=== PATIENT | male | born 1985 | race Hispanic/Latino ===

== ENCOUNTER 2021-12-07 02:32 | Inpatient (IN) | payer OTHER ==
[2021-12-07] MEDS ORDERED: Acetaminophen 325 MG TAB PO PRN (03:06)
[2021-12-07] MEDS ORDERED: Guaifenesin DM 100-10/5 ML UDCUP PO PRN (03:06)
[2021-12-07] MEDS ORDERED: Calcium Carbonate 500 MG ChewTAB PO PRN (03:06)
[2021-12-07 03:16] VITALS: BMI 20.9
[2021-12-07] MEDS: Lactated Ringer's 1,000 ML IV SCH ×2 (03:51→18:14)
[2021-12-07] MEDS: HYDROcodone/Acetaminophen 5/325 mg Tablet PO PRN ×4 (03:51→18:15)
[2021-12-07 04:40] LABS: Hemoglobin 7.1 g/dL (13.5-17.5); Mean Corpuscular Hemoglobin 27.1 pg (27.0-33.0); Mean Corpuscular Volume 87.4 fl (81.2-95.1); Mean Platelet Volume 8.1 fl (7.4-10.4); Platelet Count 656 10x3/uL (150-450); RBC Distribution Width 15.6 % (11.5-14.5); Red Blood Cell (RBC) Count 2.62 10x6/uL (4.32-5.72); White Blood Cell (WBC) Count 11.3 10x3/uL (3.5-10.5)
[2021-12-07 04:49] LABS: Anion Gap 14 mmol/L (10-20); BUN (Urea Nitrogen) 11 mg/dL (8.9-20.6); CRP (Inflammatory) 12.45 mg/dL (= or < 0.5); Calc. Creatinine Clearance 106 mL/min (70-130); Calcium 8.2 mg/dL (7.8-10.44); Carbon Dioxide 21 mmol/L (22-29); Chloride 102 mmol/L (98-107); Glucose 110 mg/dL (70-105); Potassium 4.4 mmol/L (3.5-5.1); Sodium 133 mmol/L (136-145)
[2021-12-07 05:10] LABS: MDiff Complete? YES
[2021-12-07 05:14] LABS: Band 61 % (5-11); Lymphocytes 5 % (21-51); Metamyelocyte 1 % (0-0); Monocytes 6 % (0-10); Myelocyte 1 % (0-0); Neutrophil 26 % (42-75); Nucleated RBC 1 % (0)
[2021-12-07 05:16] LABS: Platelet Morphology Comment Appears Increased; Polychromasia SLIGHT = 2-3 cells (100X) (0-2/hpf); Reflex for Review?? YES
[2021-12-07] MEDS: DULoxetine 30 MG CAP PO SCH (08:37)
[2021-12-07] MEDS: Mesalamine DR 400 mg Capsule PO SCH ×2 (08:38→20:58)
[2021-12-07] MEDS: Ferrous Sulfate 325 MG TAB PO SCH (08:40)
[2021-12-07] MEDS: Ondansetron PF 4 MG/2 ML Vial IVP PRN ×3 (08:40→18:16)
[2021-12-07] MEDS: Famotidine 20 MG TAB PO SCH ×2 (08:40→20:58)
[2021-12-07] MEDS ORDERED: azaTHIOprine 50 MG TAB PO SCH (09:00)
[2021-12-07] MEDS ORDERED: methylPREDNISolone Sod Succ/PF 125 MG/2 ML VIAL IVP SCH (09:00)
[2021-12-07] MEDS: Morphine 4 MG/ML VIAL SLOW IVP PRN ×3 (12:03→20:52)
[2021-12-07 12:07] LABS: Hemoglobin 7.1 g/dL (13.5-17.5); Mean Corpuscular HGB CONC 30.2 g/dL (32.0-36.0); Mean Corpuscular Hemoglobin 26.9 pg (27.0-33.0); Mean Platelet Volume 8.2 fl (7.4-10.4); Platelet Count 719 10x3/uL (150-450); RBC Distribution Width 15.4 % (11.5-14.5); Red Blood Cell (RBC) Count 2.64 10x6/uL (4.32-5.72); White Blood Cell (WBC) Count 15.9 10x3/uL (3.5-10.5)
[2021-12-07 12:50] LABS: MDiff Complete? YES
[2021-12-07 12:52] LABS: Band 1 % (5-11); Lymphocytes 4 % (21-51); Monocytes 4 % (0-10); Neutrophil 91 % (42-75); Nucleated RBC 1 % (0)
[2021-12-07 12:56] LABS: Hypochromia SLIGHT = 6-15 cells (100X) (0-5/hpf); Platelet Morphology Comment Appears Increased; Polychromasia SLIGHT = 2-3 cells (100X) (0-2/hpf)
[2021-12-07 19:07] LABS: Hemoglobin 8.2 g/dL (13.5-17.5); Mean Corpuscular HGB CONC 32.2 g/dL (32.0-36.0); Mean Corpuscular Hemoglobin 28.7 pg (27.0-33.0); Mean Corpuscular Volume 89.2 fl (81.2-95.1); Mean Platelet Volume 7.9 fl (7.4-10.4); Platelet Count 587 10x3/uL (150-450); Red Blood Cell (RBC) Count 2.86 10x6/uL (4.32-5.72); White Blood Cell (WBC) Count 18.8 10x3/uL (3.5-10.5)
[2021-12-07 19:26] LABS: MDiff Complete? YES
[2021-12-07 19:27] LABS: Band 24 % (5-11); Lymphocytes 4 % (21-51); Metamyelocyte 1 % (0-0); Monocytes 5 % (0-10); Neutrophil 66 % (42-75); Nucleated RBC 2 % (0)
[2021-12-07 19:28] LABS: Anisocytosis SLIGHT = 6-15 cells (100X) (0-5/hpf); Hypochromia SLIGHT = 6-15 cells (100X) (0-5/hpf); Platelet Morphology Comment Appears Adequate; Polychromasia SLIGHT = 2-3 cells (100X) (0-2/hpf)
[2021-12-07 20:35] LABS: Toxic Granulation SLIGHT
[2021-12-07] MEDS: Aripiprazole 10 MG TAB PO SCH (20:58)
[2021-12-07] MEDS: methylPREDNISolone Sod Succ 40 MG VIAL IVP SCH (22:14)
[2021-12-08] MEDS: HYDROcodone/Acetaminophen 5/325 mg Tablet PO PRN ×4 (03:47→22:07)
[2021-12-08] MEDS: Ondansetron PF 4 MG/2 ML Vial IVP PRN ×2 (03:47→12:12)
[2021-12-08] MEDS: methylPREDNISolone Sod Succ 40 MG VIAL IVP SCH ×3 (06:18→22:05)
[2021-12-08 08:55] LABS: Hemoglobin 8.3 g/dL (13.5-17.5); MDiff Complete? YES; Mean Corpuscular HGB CONC 32.5 g/dL (32.0-36.0); Mean Corpuscular Hemoglobin 28.5 pg (27.0-33.0); Mean Corpuscular Volume 87.6 fl (81.2-95.1); Mean Platelet Volume 8.2 fl (7.4-10.4); Platelet Count 604 10x3/uL (150-450); RBC Distribution Width 15.5 % (11.5-14.5); Red Blood Cell (RBC) Count 2.91 10x6/uL (4.32-5.72); White Blood Cell (WBC) Count 20.4 10x3/uL (3.5-10.5)
[2021-12-08 09:19] LABS: Anion Gap 14 mmol/L (10-20); BUN (Urea Nitrogen) 13 mg/dL (8.9-20.6); CRP (Inflammatory) 8.97 mg/dL (= or < 0.5); Calc. Creatinine Clearance 117 mL/min (70-130); Calcium 8.4 mg/dL (7.8-10.44); Carbon Dioxide 24 mmol/L (22-29); Chloride 101 mmol/L (98-107); Glucose 133 mg/dL (70-105); Potassium 4.7 mmol/L (3.5-5.1); Sodium 134 mmol/L (136-145)
[2021-12-08] MEDS: DULoxetine 30 MG CAP PO SCH (09:42)
[2021-12-08] MEDS: Morphine 4 MG/ML VIAL SLOW IVP PRN ×3 (09:42→19:52)
[2021-12-08] MEDS: Famotidine 20 MG TAB PO SCH ×2 (09:42→19:59)
[2021-12-08] MEDS: Ferrous Sulfate 325 MG TAB PO SCH (09:42)
[2021-12-08 09:44] LABS: Band 35 % (5-11); Lymphocytes 7 % (21-51); Monocytes 5 % (0-10); Neutrophil 53 % (42-75); Nucleated RBC 1 % (0)
[2021-12-08 09:45] LABS: Platelet Morphology Comment Appears Increased
[2021-12-08 09:49] LABS: Hypochromia SLIGHT = 6-15 cells (100X) (0-5/hpf); Polychromasia SLIGHT = 2-3 cells (100X) (0-2/hpf)
[2021-12-08] MEDS: Mesalamine DR 400 mg Capsule PO SCH ×2 (09:58→19:59)
[2021-12-08] MEDS: Aripiprazole 10 MG TAB PO SCH (19:59)
[2021-12-09 04:40] LABS: Hemoglobin 8.1 g/dL (13.5-17.5); Mean Corpuscular HGB CONC 31.8 g/dL (32.0-36.0); Mean Corpuscular Hemoglobin 27.8 pg (27.0-33.0); Mean Corpuscular Volume 87.6 fl (81.2-95.1); Mean Platelet Volume 8.3 fl (7.4-10.4); Platelet Count 614 10x3/uL (150-450); Red Blood Cell (RBC) Count 2.91 10x6/uL (4.32-5.72); White Blood Cell (WBC) Count 18.3 10x3/uL (3.5-10.5)
[2021-12-09 04:51] LABS: Anion Gap 16 mmol/L (10-20); BUN (Urea Nitrogen) 15 mg/dL (8.9-20.6); CRP (Inflammatory) 7.81 mg/dL (= or < 0.5); Calc. Creatinine Clearance 114 mL/min (70-130); Calcium 8.5 mg/dL (7.8-10.44); Carbon Dioxide 26 mmol/L (22-29); Chloride 97 mmol/L (98-107); Glucose 124 mg/dL (70-105); Potassium 4.8 mmol/L (3.5-5.1); Sodium 134 mmol/L (136-145)
[2021-12-09] MEDS: methylPREDNISolone Sod Succ 40 MG VIAL IVP SCH ×3 (05:31→21:02)
[2021-12-09] MEDS: HYDROcodone/Acetaminophen 5/325 mg Tablet PO PRN (05:32)
[2021-12-09 05:46] LABS: MDiff Complete? YES
[2021-12-09 05:50] LABS: Band 56 % (5-11); Lymphocytes 5 % (21-51); Monocytes 5 % (0-10); Myelocyte 2 % (0-0); Neutrophil 32 % (42-75); Nucleated RBC 2 % (0)
[2021-12-09] MEDS: Ondansetron PF 4 MG/2 ML Vial IVP PRN (05:50)
[2021-12-09 05:53] LABS: Platelet Morphology Comment Appears Increased; Polychromasia SLIGHT = 2-3 cells (100X) (0-2/hpf)
[2021-12-09] MEDS: DULoxetine 30 MG CAP PO SCH (07:31)
[2021-12-09] MEDS: Ferrous Sulfate 325 MG TAB PO SCH (07:31)
[2021-12-09] MEDS: Mesalamine DR 400 mg Capsule PO SCH ×3 (07:32→20:58)
[2021-12-09] MEDS: Famotidine 20 MG TAB PO SCH (07:32)
[2021-12-09] MEDS ORDERED: Dicyclomine 10 MG CAP PO PRN (09:13)
[2021-12-09] MEDS ORDERED: Sodium Chloride 0.9% 1,000 ML IV SCH (09:15)
[2021-12-09] MEDS: Morphine 4 MG/ML VIAL SLOW IVP PRN ×3 (09:48→18:40)
[2021-12-09] MEDS ORDERED: Iron, Sodium Ferric Gluconate 250 MG, Admixture Fee 1 EACH in Sodium Chloride 0.9% 250 ... IVPB SCH (10:00)
[2021-12-09 14:21] LABS: ALT (SGPT) 10 U/L (8-55); AST (SGOT) 12 U/L (5-34); Albumin 2.6 g/dL (3.5-5.0); Alkaline Phosphatase 61 U/L (40-110); Bilirubin, Direct 0.1 mg/dL (0.1-0.3); Bilirubin, Total 0.2 mg/dL (0.2-1.2); Lipase 871 U/L (8-78); Protein, Total 6.3 g/dL (6.0-8.3)
[2021-12-09] MEDS: Sodium Chloride 0.9% 1,000 ML IV SCH ×2 (18:41→21:02)
[2021-12-09] MEDS: Aripiprazole 10 MG TAB PO SCH (21:01)
[2021-12-09 21:57] LABS: Bilirubin Neg (Negative); Blood, Urine Negative (Negative); Clarity Clear (Clear); Glucose, Urine (Dipstick) Normal (Negative); Ketone, Urine 5 mg/dL (Negative); Leukocyte Negative (Negative); Nitrite Negative (Negative); Protein, Urine (Dipstick) Negative (Neg-Trace); Urobilinogen Normal mg/dL (Less than 2)
[2021-12-09 22:01] LABS: Urine Culture Reflex No No
[2021-12-09 22:05] LABS: RBC/HPF None Seen HPF (0-3); Squamous Epithelial 0-3 HPF (0-3); WBC/HPF 0-3 HPF (0-3)
[2021-12-09 22:06] LABS: Bacteria/HPF Rare-Few HPF (None Seen)
[2021-12-10] MEDS: Morphine 4 MG/ML VIAL SLOW IVP PRN ×5 (00:57→18:28)
[2021-12-10] MEDS: Ondansetron PF 4 MG/2 ML Vial IVP PRN (01:01)
[2021-12-10] MEDS: Sodium Chloride 0.9% 1,000 ML IV SCH ×7 (01:04→22:40)
[2021-12-10] MEDS: methylPREDNISolone Sod Succ 40 MG VIAL IVP SCH ×3 (05:10→22:15)
[2021-12-10 05:13] LABS: ALT (SGPT) 8 U/L (8-55); AST (SGOT) 10 U/L (5-34); Albumin 2.5 g/dL (3.5-5.0); Alkaline Phosphatase 54 U/L (40-110); Anion Gap 10 mmol/L (10-20); BUN (Urea Nitrogen) 9 mg/dL (8.9-20.6); Bilirubin, Total 0.2 mg/dL (0.2-1.2); Calc. Creatinine Clearance 129 mL/min (70-130); Calcium 8.1 mg/dL (7.8-10.44); Carbon Dioxide 28 mmol/L (22-29); Chloride 99 mmol/L (98-107); Globulin 3.6 g/dL (2.4-3.5); Glucose 108 mg/dL (70-105); Hemoglobin 7.7 g/dL (13.5-17.5); Lipase 415 U/L (8-78); Mean Corpuscular HGB CONC 31.3 g/dL (32.0-36.0); Mean Corpuscular Hemoglobin 27.8 pg (27.0-33.0); Mean Corpuscular Volume 88.8 fl (81.2-95.1); Mean Platelet Volume 8.2 fl (7.4-10.4); Phosphorus 3.4 mg/dL (2.3-4.7); Platelet Count 478 10x3/uL (150-450); Potassium 4.2 mmol/L (3.5-5.1); Protein, Total 6.1 g/dL (6.0-8.3); RBC Distribution Width 16.6 % (11.5-14.5); Red Blood Cell (RBC) Count 2.77 10x6/uL (4.32-5.72); Sodium 133 mmol/L (136-145); Uric Acid 3.3 mg/dL (3.5-7.2); White Blood Cell (WBC) Count 14.2 10x3/uL (3.5-10.5)
[2021-12-10 05:38] LABS: CRP (Inflammatory) 7.05 mg/dL (= or < 0.5); Cardiac Risk 3.9 (Less than 4.5); Cholesterol 129 mg/dl (< 200 Desired); HDL Cholesterol 33 mg/dL (>60 Neg Risk); LDL Cholesterol, Calculated 72 mg/dL; Magnesium 2.1 mg/dL (1.6-2.6); Triglycerides 121 mg/dL (Less than 150)
[2021-12-10 06:21] LABS: MDiff Complete? YES
[2021-12-10 06:24] LABS: Band 19 % (5-11); Lymphocytes 5 % (21-51); Monocytes 7 % (0-10); Neutrophil 69 % (42-75); Nucleated RBC 5 % (0)
[2021-12-10 06:26] LABS: Platelet Morphology Comment Appears Increased
[2021-12-10 06:28] LABS: Anisocytosis SLIGHT = 6-15 cells (100X) (0-5/hpf); Hypochromia MODERATE=16-30 cells (100X) (0-5/hpf); Polychromasia SLIGHT = 2-3 cells (100X) (0-2/hpf)
[2021-12-10] MEDS: Pantoprazole 40 MG VIAL IVP SCH (09:17)
[2021-12-10] MEDS: DULoxetine 30 MG CAP PO SCH (09:18)
[2021-12-10] MEDS: LACTINEX 1 TAB PO SCH (09:18)
[2021-12-10 12:03] LABS: Hemoglobin A1c 5.4 % (4.0-6.0)
[2021-12-10] MEDS: HYDROcodone/Acetaminophen 5/325 mg Tablet PO PRN ×2 (15:57→22:14)
[2021-12-10] MEDS: Aripiprazole 10 MG TAB PO SCH ×2 (22:15→22:25)
[2021-12-11] MEDS: HYDROcodone/Acetaminophen 5/325 mg Tablet PO PRN ×3 (02:45→12:57)
[2021-12-11 05:05] LABS: ALT (SGPT) 7 U/L (8-55); AST (SGOT) 9 U/L (5-34); Albumin 2.4 g/dL (3.5-5.0); Alkaline Phosphatase 50 U/L (40-110); Anion Gap 11 mmol/L (10-20); BUN (Urea Nitrogen) 8 mg/dL (8.9-20.6); Bilirubin, Total 0.2 mg/dL (0.2-1.2); Calc. Creatinine Clearance 133 mL/min (70-130); Calcium 8.1 mg/dL (7.8-10.44); Carbon Dioxide 27 mmol/L (22-29); Chloride 99 mmol/L (98-107); Globulin 3.2 g/dL (2.4-3.5); Glucose 119 mg/dL (70-105); Lipase 142 U/L (8-78); Phosphorus 3.1 mg/dL (2.3-4.7); Protein, Total 5.6 g/dL (6.0-8.3); Sodium 133 mmol/L (136-145)
[2021-12-11 05:06] LABS: Hemoglobin 7.3 g/dL (13.5-17.5); Mean Corpuscular HGB CONC 30.7 g/dL (32.0-36.0); Mean Corpuscular Hemoglobin 27.9 pg (27.0-33.0); Mean Corpuscular Volume 90.8 fl (81.2-95.1); Mean Platelet Volume 8.3 fl (7.4-10.4); Platelet Count 432 10x3/uL (150-450); RBC Distribution Width 16.7 % (11.5-14.5); Red Blood Cell (RBC) Count 2.62 10x6/uL (4.32-5.72); White Blood Cell (WBC) Count 11.4 10x3/uL (3.5-10.5)
[2021-12-11 05:13] LABS: MDiff Complete? YES
[2021-12-11 05:14] LABS: Platelet Morphology Comment Appears Adequate; RBC Morphology Normal
[2021-12-11 05:18] LABS: Band 15 % (5-11); Lymphocytes 6 % (21-51); Monocytes 5 % (0-10); Neutrophil 73 % (42-75); Nucleated RBC 5 % (0); Reactive Lymphocytes 1 % (0-10)
[2021-12-11] MEDS: methylPREDNISolone Sod Succ 40 MG VIAL IVP SCH ×3 (06:06→21:47)
[2021-12-11] MEDS: Sodium Chloride 0.9% 1,000 ML IV SCH ×2 (06:17→12:56)
[2021-12-11] MEDS: LACTINEX 1 TAB PO SCH (09:10)
[2021-12-11] MEDS: Pantoprazole 40 MG VIAL IVP SCH (09:10)
[2021-12-11] MEDS: DULoxetine 30 MG CAP PO SCH (09:10)
[2021-12-11] MEDS: Morphine 4 MG/ML VIAL SLOW IVP PRN ×3 (09:24→21:55)
[2021-12-11] MEDS: Ondansetron PF 4 MG/2 ML Vial IVP PRN (17:51)
[2021-12-11] MEDS: Aripiprazole 10 MG TAB PO SCH (21:47)
[2021-12-12] MEDS: Morphine 4 MG/ML VIAL SLOW IVP PRN ×6 (01:29→22:59)
[2021-12-12] MEDS: Sodium Chloride 0.9% 1,000 ML IV SCH ×2 (01:34→14:05)
[2021-12-12 04:09] LABS: Hemoglobin 7.8 g/dL (13.5-17.5); Mean Corpuscular HGB CONC 31.6 g/dL (32.0-36.0); Mean Corpuscular Hemoglobin 28.1 pg (27.0-33.0); Mean Corpuscular Volume 88.8 fl (81.2-95.1); Mean Platelet Volume 8.3 fl (7.4-10.4); Platelet Count 399 10x3/uL (150-450); RBC Distribution Width 16.9 % (11.5-14.5); Red Blood Cell (RBC) Count 2.78 10x6/uL (4.32-5.72); White Blood Cell (WBC) Count 10.9 10x3/uL (3.5-10.5)
[2021-12-12 04:24] LABS: ALT (SGPT) 8 U/L (8-55); AST (SGOT) 8 U/L (5-34); Albumin 2.5 g/dL (3.5-5.0); Alkaline Phosphatase 56 U/L (40-110); Anion Gap 11 mmol/L (10-20); BUN (Urea Nitrogen) 8 mg/dL (8.9-20.6); Bilirubin, Total 0.2 mg/dL (0.2-1.2); Calc. Creatinine Clearance 129 mL/min (70-130); Calcium 8.1 mg/dL (7.8-10.44); Carbon Dioxide 27 mmol/L (22-29); Chloride 97 mmol/L (98-107); Globulin 3.2 g/dL (2.4-3.5); Glucose 133 mg/dL (70-105); Lipase 131 U/L (8-78); Magnesium 1.9 mg/dL (1.6-2.6); Phosphorus 2.6 mg/dL (2.3-4.7); Potassium 3.9 mmol/L (3.5-5.1); Protein, Total 5.7 g/dL (6.0-8.3); Sodium 131 mmol/L (136-145)
[2021-12-12] MEDS: Ondansetron PF 4 MG/2 ML Vial IVP PRN (05:05)
[2021-12-12] MEDS: methylPREDNISolone Sod Succ 40 MG VIAL IVP SCH ×3 (05:13→21:51)
[2021-12-12 06:08] LABS: MDiff Complete? YES
[2021-12-12 06:12] LABS: Band 17 % (5-11); Lymphocytes 5 % (21-51); Metamyelocyte 2 % (0-0); Monocytes 4 % (0-10); Neutrophil 68 % (42-75); Nucleated RBC 1 % (0); Reactive Lymphocytes 2 % (0-10)
[2021-12-12 06:15] LABS: Hypochromia SLIGHT = 6-15 cells (100X) (0-5/hpf); Platelet Morphology Comment Appears Adequate; Polychromasia SLIGHT = 2-3 cells (100X) (0-2/hpf)
[2021-12-12] MEDS: Pantoprazole 40 MG VIAL IVP SCH (10:33)
[2021-12-12] MEDS: DULoxetine 30 MG CAP PO SCH (10:33)
[2021-12-12] MEDS: LACTINEX 1 TAB PO SCH (10:33)
[2021-12-12] MEDS: Iron, Sodium Ferric Gluconate 125 MG in Sodium Chloride 0.9% 100 ML IVPB SCH (11:19)
[2021-12-12 11:38] LABS: CMV DNA-PCR Test Negative (Negative)
[2021-12-12] MEDS: Aripiprazole 10 MG TAB PO SCH (21:28)
[2021-12-13 04:20] LABS: Hemoglobin 8.8 g/dL (13.5-17.5); Mean Corpuscular HGB CONC 31.3 g/dL (32.0-36.0); Mean Corpuscular Hemoglobin 27.8 pg (27.0-33.0); Mean Corpuscular Volume 88.9 fl (81.2-95.1); Mean Platelet Volume 8.4 fl (7.4-10.4); Platelet Count 336 10x3/uL (150-450); RBC Distribution Width 17.4 % (11.5-14.5); Red Blood Cell (RBC) Count 3.16 10x6/uL (4.32-5.72); White Blood Cell (WBC) Count 12.8 10x3/uL (3.5-10.5)
[2021-12-13] MEDS: Morphine 4 MG/ML VIAL SLOW IVP PRN ×5 (04:26→22:04)
[2021-12-13] MEDS: Sodium Chloride 0.9% 1,000 ML IV SCH ×2 (04:34→18:19)
[2021-12-13 04:35] LABS: ALT (SGPT) 24 U/L (8-55); AST (SGOT) 16 U/L (5-34); Albumin 2.7 g/dL (3.5-5.0); Alkaline Phosphatase 67 U/L (40-110); Anion Gap 12 mmol/L (10-20); BUN (Urea Nitrogen) 10 mg/dL (8.9-20.6); Bilirubin, Total 0.2 mg/dL (0.2-1.2); Calc. Creatinine Clearance 123 mL/min (70-130); Calcium 8.2 mg/dL (7.8-10.44); Carbon Dioxide 27 mmol/L (22-29); Chloride 97 mmol/L (98-107); Globulin 3.4 g/dL (2.4-3.5); Glucose 120 mg/dL (70-105); Lipase 167 U/L (8-78); Magnesium 1.9 mg/dL (1.6-2.6); Phosphorus 2.1 mg/dL (2.3-4.7); Protein, Total 6.1 g/dL (6.0-8.3); Sodium 132 mmol/L (136-145)
[2021-12-13 05:18] LABS: MDiff Complete? YES
[2021-12-13 05:22] LABS: Band 14 % (5-11); Lymphocytes 3 % (21-51); Metamyelocyte 5 % (0-0); Monocytes 8 % (0-10); Neutrophil 68 % (42-75); Reactive Lymphocytes 2 % (0-10)
[2021-12-13 05:23] LABS: Hypochromia SLIGHT = 6-15 cells (100X) (0-5/hpf); Platelet Morphology Comment Appears Adequate; Polychromasia SLIGHT = 2-3 cells (100X) (0-2/hpf)
[2021-12-13] MEDS: methylPREDNISolone Sod Succ 40 MG VIAL IVP SCH ×3 (05:27→21:24)
[2021-12-13] MEDS ORDERED: Potassium Phosphate 30 MMOL in Sodium Chloride 0.9% 500 ML IVPB SCH (06:00)
[2021-12-13] MEDS: DULoxetine 30 MG CAP PO SCH ×2 (08:21→08:22)
[2021-12-13] MEDS: LACTINEX 1 TAB PO SCH (08:22)
[2021-12-13] MEDS: Pantoprazole 40 MG VIAL IVP SCH (08:22)
[2021-12-13] MEDS: Iron, Sodium Ferric Gluconate 125 MG in Sodium Chloride 0.9% 100 ML IVPB SCH (11:19)
[2021-12-13] MEDS: Aripiprazole 10 MG TAB PO SCH ×2 (21:24→21:27)
[2021-12-14] MEDS: Morphine 4 MG/ML VIAL SLOW IVP PRN ×3 (02:58→13:08)
[2021-12-14 04:16] LABS: Hemoglobin 8.5 g/dL (13.5-17.5); Mean Corpuscular HGB CONC 32.1 g/dL (32.0-36.0); Mean Corpuscular Hemoglobin 28.4 pg (27.0-33.0); Mean Corpuscular Volume 88.6 fl (81.2-95.1); Mean Platelet Volume 8.3 fl (7.4-10.4); Platelet Count 280 10x3/uL (150-450); RBC Distribution Width 17.5 % (11.5-14.5); Red Blood Cell (RBC) Count 2.99 10x6/uL (4.32-5.72)
[2021-12-14 04:45] LABS: ALT (SGPT) 19 U/L (8-55); AST (SGOT) 9 U/L (5-34); Albumin 2.6 g/dL (3.5-5.0); Alkaline Phosphatase 63 U/L (40-110); Anion Gap 11 mmol/L (10-20); BUN (Urea Nitrogen) 10 mg/dL (8.9-20.6); Bilirubin, Total 0.2 mg/dL (0.2-1.2); Calc. Creatinine Clearance 143 mL/min (70-130); Carbon Dioxide 26 mmol/L (22-29); Chloride 96 mmol/L (98-107); Globulin 3.2 g/dL (2.4-3.5); Glucose 159 mg/dL (70-105); Lipase 177 U/L (8-78); Magnesium 1.8 mg/dL (1.6-2.6); Phosphorus 2.3 mg/dL (2.3-4.7); Potassium 4.2 mmol/L (3.5-5.1); Protein, Total 5.8 g/dL (6.0-8.3); Sodium 129 mmol/L (136-145)
[2021-12-14] MEDS: methylPREDNISolone Sod Succ 40 MG VIAL IVP SCH ×2 (05:28→13:05)
[2021-12-14] MEDS: Sodium Chloride 0.9% 1,000 ML IV SCH (05:28)
[2021-12-14 05:43] LABS: MDiff Complete? YES
[2021-12-14 05:48] LABS: Lymphocytes 9 % (21-51); Monocytes 8 % (0-10); Neutrophil 83 % (42-75)
[2021-12-14 05:50] LABS: Hypochromia SLIGHT = 6-15 cells (100X) (0-5/hpf); Microcytosis SLIGHT = 6-15 cells (100X) (0-5/hpf); Platelet Morphology Comment Appears Adequate; Polychromasia SLIGHT = 2-3 cells (100X) (0-2/hpf)
[2021-12-14] MEDS: Pantoprazole 40 MG VIAL IVP SCH (07:59)
[2021-12-14] MEDS: LACTINEX 1 TAB PO SCH (08:00)
[2021-12-14] MEDS: Iron, Sodium Ferric Gluconate 125 MG in Sodium Chloride 0.9% 100 ML IVPB SCH (10:58)
[2021-12-14 13:17] VITALS: BP 119/69; TEMP 97.6
== END 2021-12-14 13:19 | disposition short-term general hospital (02) | DRG 385 ==
LOC: EEVIPCON 02:32 → CSHTELE 02:32
PROVIDERS: ADMIT Student in an Organized Health Care Education/Training Program; ATTEND Family Medicine
PROC: 30233N1 Transfusion of Nonautologous Red Blood Cells into Peripheral Vein, Percutaneous Approach (ICD-10-PCS; principal; 2021-12-07)
DX: K50.111 Crohn's disease of large intestine with rectal bleeding (principal); K85.30 Drug induced acute pancreatitis without necrosis or infection; E87.1 Hypo-osmolality and hyponatremia; D62 Acute posthemorrhagic anemia; E27.3 Drug-induced adrenocortical insufficiency; G40.909 Epilepsy, unspecified, not intractable, without status epilepticus; Z20.822 Contact with and (suspected) exposure to COVID-19; F32.A Depression, unspecified; K52.9 Noninfective gastroenteritis and colitis, unspecified; E86.0 Dehydration; T45.1X5A Adverse effect of antineoplastic and immunosuppressive drugs, initial encounter; T38.0X5A Adverse effect of glucocorticoids and synthetic analogues, initial encounter; Z79.899 Other long term (current) drug therapy
CPT/HCPCS: 36415; 36430; 71275; 74019; 76705; 80048; 80053; 80061; 80076; 81001; 82533; 83036; 83615; 83630; 83690; 83735; 83930; 83935; 84100; 84300; 84443; 84550; 84560; 85025; 85060; 85652; 86140; 86850; 86900; 86901; 87497; C9113; J2270; J2405; J2916; J2920; J2930; J3490; J7030; J7050; J7120; J7500; P9016

== ENCOUNTER 2022-11-16 17:55 | Inpatient (IN) | payer OTHER ==
[~2022-11-16 17:55] MED LIST: Iopamidol 300 61% 100 ML VIAL FS ONE
[2022-11-16 18:26] LABS: #Eosinphils 0.3 10x3/uL (0.0-0.5); #Monocytes 0.6 10x3/uL (0.0-1.1); #Neutrophils 3.9 10x3/uL (1.5-8.4); %Basophils 0.3 % (0.0-2.0); %Eosinophils 5.1 % (0.0-6.0); %Lymphocytes 23.5 % (18.0-47.0); %Monocytes 9.3 % (0.0-10.0); %Neutrophils 61.6 % (40.0-75.0); Hemoglobin 3.7 g/dL (13.5-17.5); Mean Corpuscular HGB CONC 24.3 g/dL (32.0-36.0); Mean Corpuscular Hemoglobin 15.3 pg (27.0-33.0); Mean Corpuscular Volume 62.8 fl (81.2-95.1); Mean Platelet Volume 9.1 fl (7.4-10.4); Platelet Count 316 10x3/uL (150-450); RBC Distribution Width 22.3 % (11.5-14.5); Red Blood Cell (RBC) Count 2.42 10x6/uL (4.32-5.72); White Blood Cell (WBC) Count 6.3 10x3/uL (3.5-10.5)
[2022-11-16 18:33] LABS: PTT 25.9 sec (22.0-33.0); Prothrombin Time 10.7 sec (9.5-12.1)
[2022-11-16 18:36] LABS: ALT (SGPT) 6 U/L (8-55); AST (SGOT) 12 U/L (5-34); Albumin 3.7 g/dL (3.5-5.0); Alkaline Phosphatase 67 U/L (40-110); Anion Gap 11 mmol/L (10-20); BUN (Urea Nitrogen) 10 mg/dL (8.9-20.6); Bilirubin, Total 0.3 mg/dL (0.2-1.2); Calc. Creatinine Clearance 0 mL/min (70-130); Calcium 8.4 mg/dL (7.8-10.44); Carbon Dioxide 24 mmol/L (22-29); Chloride 110 mmol/L (98-107); Estimated GFR 114; Globulin 3.7 g/dL (2.4-3.5); Glucose 118 mg/dL (70-105); Potassium 4.4 mmol/L (3.5-5.1); Protein, Total 7.4 g/dL (6.0-8.3); Sodium 141 mmol/L (136-145)
[2022-11-16] MEDS ORDERED: methylPREDNISolone Sod Succ/PF 125 MG/2 ML VIAL ONE (18:45)
[2022-11-16 18:46] LABS: Anisocytosis MODERATE=16-30 cells (100X) (0-5/hpf); Hypochromia MARKED = >30 cells (100X) (0-5/hpf); Microcytosis MARKED = >30 cells (100X) (0-5/hpf); Polychromasia SLIGHT = 2-3 cells (100X) (0-2/hpf); Reflex for Review?? YES; Schistocytes SLIGHT = 2-5 cells (100X) (0-1/hpf); Target Cells SLIGHT = 2-5 cells (100X) (0-1/hpf)
[2022-11-16] MEDS ORDERED: Pantoprazole 40 MG VIAL ONE (18:46)
[2022-11-16 18:47] LABS: Giant Platelets SLIGHT; Platelet Morphology Comment Appears Adequate; Stomatocytes MODERATE= 6-15 cells (100X) (0-1/hpf); Tear Drops SLIGHT = 2-5 cells (100X) (0-1/hpf)
[2022-11-16 19:21] LABS: SARS-CoV-2 NAA Rapid Test DETECTED (NotDetected)
[2022-11-16] MEDS ORDERED: Acetaminophen 325 MG TAB PO PRN (21:22)
[2022-11-16] MEDS ORDERED: Calcium Carbonate 500 MG ChewTAB PO PRN (21:22)
[2022-11-16] MEDS ORDERED: Ondansetron PF 4 MG/2 ML Vial IVP PRN (21:22)
[2022-11-16 22:53] VITALS: BMI 25.3
[2022-11-16] MEDS: HYDROcodone/Acetaminophen 5/325 mg Tablet PO PRN (23:38)
[2022-11-17] MEDS ORDERED: FLU VACC QS2022-23(6MOS UP)/PF 60 MCG/0.5 ML SYRINGE IM ONE (03:30)
[2022-11-17] MEDS: methylPREDNISolone Sod Succ 40 MG VIAL IVP SCH ×3 (05:52→21:37)
[2022-11-17] MEDS: HYDROcodone/Acetaminophen 5/325 mg Tablet PO PRN ×4 (05:52→21:36)
[2022-11-17 05:57] LABS: Hemoglobin 6.5 g/dL (13.5-17.5); Mean Corpuscular HGB CONC 28.5 g/dL (32.0-36.0); Mean Corpuscular Hemoglobin 20.4 pg (27.0-33.0); Mean Corpuscular Volume 71.5 fl (81.2-95.1); Mean Platelet Volume 9.1 fl (7.4-10.4); Platelet Count 278 10x3/uL (150-450); RBC Distribution Width 29.6 % (11.5-14.5); Red Blood Cell (RBC) Count 3.19 10x6/uL (4.32-5.72); White Blood Cell (WBC) Count 6.8 10x3/uL (3.5-10.5)
[2022-11-17 06:06] LABS: Anion Gap 11 mmol/L (10-20); BUN (Urea Nitrogen) 8 mg/dL (8.9-20.6); Calc. Creatinine Clearance 124 mL/min (70-130); Carbon Dioxide 20 mmol/L (22-29); Chloride 108 mmol/L (98-107); Estimated GFR 119; Glucose 171 mg/dL (70-105); Iron 18 ug/dL (65-175); Iron Binding Capacity, Total 396 mcg/dL (261-462); Lipase 18 U/L (8-78); Potassium 4.5 mmol/L (3.5-5.1); Sodium 134 mmol/L (136-145)
[2022-11-17 06:18] LABS: Ferritin Less than 2.00 ng/mL (22-322)
[2022-11-17 06:30] LABS: CRP (Inflammatory) 2.42 mg/dL (= or < 0.5)
[2022-11-17 06:32] LABS: MDiff Complete? YES
[2022-11-17 06:36] LABS: Band 4 % (5-11); Lymphocytes 9 % (21-51); Neutrophil 87 % (42-75); Nucleated RBC 2 % (0)
[2022-11-17 06:39] LABS: Anisocytosis MODERATE=16-30 cells (100X) (0-5/hpf); Hypochromia MARKED = >30 cells (100X) (0-5/hpf); Microcytosis MODERATE=15-30 cells (100X) (0-5/hpf); Schistocytes SLIGHT = 2-5 cells (100X) (0-1/hpf); Tear Drops SLIGHT = 2-5 cells (100X) (0-1/hpf)
[2022-11-17 06:40] LABS: Platelet Morphology Comment Appears Adequate
[2022-11-17] MEDS: Dicyclomine 10 MG CAP PO PRN ×2 (08:33→21:37)
[2022-11-17] MEDS: Ferrous Sulfate 325 MG TAB PO SCH (08:33)
[2022-11-17] MEDS: Zinc Gluconate 50 MG TAB PO SCH (08:33)
[2022-11-17] MEDS: Multivitamin W/ Minerals 1 TAB PO SCH (08:33)
[2022-11-17] MEDS: Famotidine/PF 20 mg/2ml Vial SLOW IVP SCH ×2 (08:33→21:37)
[2022-11-17 14:51] LABS: Vitamin B12 361 pg/mL (211-911)
[2022-11-17 16:44] LABS: Campy jejuni + coli by PCR Negative (Negative); STEC Shiga Toxin 1+2 Negative (Negative); Salmonella spp. by PCR Negative (Negative); Shigella spp + EIEC by PCR Negative (Negative)
[2022-11-17 18:10] LABS: Hemoglobin 8.6 g/dL (13.5-17.5)
[2022-11-18] MEDS: methylPREDNISolone Sod Succ 40 MG VIAL IVP SCH ×3 (05:23→21:59)
[2022-11-18 06:26] LABS: #Monocytes 0.1 10x3/uL (0.0-1.1); #Neutrophils 5.7 10x3/uL (1.5-8.4); %Lymphocytes 10.3 % (18.0-47.0); %Monocytes 1.8 % (0.0-10.0); %Neutrophils 87.6 % (40.0-75.0); Hemoglobin 8.6 g/dL (13.5-17.5); Mean Corpuscular HGB CONC 29.5 g/dL (32.0-36.0); Mean Corpuscular Hemoglobin 22.2 pg (27.0-33.0); Mean Corpuscular Volume 75.3 fl (81.2-95.1); Mean Platelet Volume 9.2 fl (7.4-10.4); Platelet Count 264 10x3/uL (150-450); RBC Distribution Width 29.2 % (11.5-14.5); Red Blood Cell (RBC) Count 3.88 10x6/uL (4.32-5.72); White Blood Cell (WBC) Count 6.5 10x3/uL (3.5-10.5)
[2022-11-18 06:40] LABS: Anion Gap 13 mmol/L (10-20); BUN (Urea Nitrogen) 14 mg/dL (8.9-20.6); Calc. Creatinine Clearance 125 mL/min (70-130); Calcium 9.4 mg/dL (7.8-10.44); Carbon Dioxide 23 mmol/L (22-29); Chloride 105 mmol/L (98-107); Estimated GFR 120; Glucose 138 mg/dL (70-105); Potassium 4.6 mmol/L (3.5-5.1); Sodium 136 mmol/L (136-145)
[2022-11-18] MEDS: Famotidine/PF 20 mg/2ml Vial SLOW IVP SCH ×2 (08:52→21:55)
[2022-11-18] MEDS: HYDROcodone/Acetaminophen 5/325 mg Tablet PO PRN (08:52)
[2022-11-18] MEDS: Dicyclomine 10 MG CAP PO PRN (08:52)
[2022-11-18] MEDS: Multivitamin W/ Minerals 1 TAB PO SCH (08:52)
[2022-11-18] MEDS: Ferrous Sulfate 325 MG TAB PO SCH (08:52)
[2022-11-18] MEDS: Zinc Gluconate 50 MG TAB PO SCH (08:52)
[2022-11-19 06:16] LABS: Anion Gap 13 mmol/L (10-20); BUN (Urea Nitrogen) 21 mg/dL (8.9-20.6); Calc. Creatinine Clearance 125 mL/min (70-130); Calcium 9.4 mg/dL (7.8-10.44); Carbon Dioxide 23 mmol/L (22-29); Chloride 105 mmol/L (98-107); Estimated GFR 120; Glucose 125 mg/dL (70-105); Potassium 4.5 mmol/L (3.5-5.1); Sodium 136 mmol/L (136-145)
[2022-11-19 06:41] LABS: #Monocytes 0.3 10x3/uL (0.0-1.1); %Basophils 0.1 % (0.0-2.0); %Lymphocytes 5.9 % (18.0-47.0); %Monocytes 1.9 % (0.0-10.0); %Neutrophils 91.6 % (40.0-75.0); Hemoglobin 9.3 g/dL (13.5-17.5); Mean Corpuscular HGB CONC 29.3 g/dL (32.0-36.0); Mean Corpuscular Hemoglobin 22.5 pg (27.0-33.0); Mean Corpuscular Volume 76.6 fl (81.2-95.1); Platelet Count 259 10x3/uL (150-450); Red Blood Cell (RBC) Count 4.14 10x6/uL (4.32-5.72); White Blood Cell (WBC) Count 13.1 10x3/uL (3.5-10.5)
[2022-11-19 06:42] LABS: Anisocytosis MODERATE=16-30 cells (100X) (0-5/hpf); Hypochromia SLIGHT = 6-15 cells (100X) (0-5/hpf); Macrocytosis SLIGHT = 6-15 cells (100X) (0-5/hpf); Microcytosis MODERATE=15-30 cells (100X) (0-5/hpf)
[2022-11-19 06:43] LABS: Platelet Morphology Comment Appears Adequate
[2022-11-19] MEDS: HYDROcodone/Acetaminophen 5/325 mg Tablet PO PRN (08:19)
[2022-11-19] MEDS: Famotidine/PF 20 mg/2ml Vial SLOW IVP SCH (08:20)
[2022-11-19] MEDS: Multivitamin W/ Minerals 1 TAB PO SCH (08:20)
[2022-11-19] MEDS: Ferrous Sulfate 325 MG TAB PO SCH (08:20)
[2022-11-19] MEDS: Zinc Gluconate 50 MG TAB PO SCH (08:20)
[2022-11-19] MEDS: methylPREDNISolone Sod Succ 40 MG VIAL IVP SCH (08:21)
[2022-11-19 13:42] VITALS: BP 123/60; TEMP 98.2
== END 2022-11-19 17:00 | disposition home or self-care (01) | DRG 385 ==
LOC: CSHERS 17:55 → CSHTELE 22:39
PROVIDERS: ADMIT Student in an Organized Health Care Education/Training Program; ATTEND Family Medicine
PROC: 30233N1 Transfusion of Nonautologous Red Blood Cells into Peripheral Vein, Percutaneous Approach (ICD-10-PCS; principal; 2022-11-16)
DX: K50.111 Crohn's disease of large intestine with rectal bleeding (principal); U07.1 COVID-19; D62 Acute posthemorrhagic anemia; G40.909 Epilepsy, unspecified, not intractable, without status epilepticus; F41.9 Anxiety disorder, unspecified; F20.9 Schizophrenia, unspecified; F31.9 Bipolar disorder, unspecified; F43.10 Post-traumatic stress disorder, unspecified; Z79.899 Other long term (current) drug therapy; Z98.890 Other specified postprocedural states
CPT/HCPCS: 36415; 36430; 74177; 80048; 80053; 82607; 82728; 83540; 83550; 83690; 84484; 85025; 85060; 85610; 85730; 86140; 86850; 86900; 86901; 87324; 87449; 87505; 93005; 96374; 96375; C9113; J2920; J2930; P9016; Q9967; S0028; U0002